=== PATIENT | male | born 1985 | race Caucasian/White ===

== ENCOUNTER 2025-05-19 08:31 | Emergency (ER) | payer BC, SELFPAY ==
--- NOTE | ~2025-05-19 | XR_ITS ---
EXAMINATION: XR foot RT min 3V DATE: 05/19/2025 09:21 INDICATION: Lateral right foot pain TECHNIQUE: Dorsoplantar, two oblique and lateral views of the right foot were obtained. COMPARISON: None. FINDINGS: Alignment is normal. No fracture. Joint spaces are normal. No periosteal reaction or cortical erosions. Soft tissues are unremarkable. IMPRESSION: 1. Negative right foot radiographs. Reviewed, dictated and finalized at location A.
--- OUTSIDE RECORDS SUMMARY | 2025-05-19 08:41 | XMS_ITS | Clinical Summary ---
Author Organization [facility] Address [address] [place] [address] Phone Care Team Providers Care Highway Traffic Control Technician Name Role Phone Unavailable Primary Care Provider Unavailabl e Immunizations Immunization Administration Dates Next Due INFLUENZA VACCINE QUADRIVALENT 6 MOS UP PF IM Social History Tobacco Use Types Packs/Day Years Used Date Smoking Tobacco: Never Assessed Sex and Gender Information Value Date Recorded Sex Assigned at Not on file Legal Sex Male 7:24 PM CDT Gender Identity Not on file Sexual Orientation Not on file Plan of Treatment Health Maintenance Due Date Last Done Comments DTAP/TDAP/TD VACCINES (1 - Tdap) 2005 HEPATITIS B VACCINES (1 of 3 - 19+ 3-dose series) 11/2005 HPV VACCINES (1 - 3-dose SCDM series) 2013 INFLUENZA VACCINE (#1) 2025 06/20/2021 Insurance BLUE ACCESS CHOICE
--- OUTSIDE RECORDS SUMMARY | 2025-05-19 08:41 | XMS_ITS | Encounter Summary ---
Author Organization [facility] Address [address] [place] [address] Care Team Providers Care Cafeteria Operator Name Role Phone Unavailable Primary Care Provider Unavailabl e Encounter Details Date Type Department Care Team (Late st Contact Info) Description 01/31/2020 Lab Requisition [facility] [place] [address] [place] [address] Samir Lee MD [address] [place] [address] Social History Tobacco Use Types Packs/Day Years Used Date Smoking Tobacco: Never Assessed Sex and Gender Information Value Date Recorded Sex Assigned at Not on file Legal Sex Male 7:24 PM CDT Gender Identity Not on file Sexual Orientation Not on file documented as of this encounter Plan of Treatment Not on file documented as of this encounter Visit Diagnoses Not on filedocumented in this encounter
--- OUTSIDE RECORDS SUMMARY | 2025-05-19 08:41 | XMS_ITS | Encounter Summary ---
Author Organization [facility] Address [address] [place] [address] Care Team Providers Care Director Medical Affairs Name Role Phone Unavailable Primary Care Provider Unavailabl e Encounter Details Date Type Department Care Team (Late st Contact Info) Description 01/31/2020 Lab Requisition [facility] [place] [address] [place] [place] [address] Samir Lee MD [address] [place] [address] Social History Tobacco Use Types Packs/Day Years Used Date Smoking Tobacco: Never Assessed Sex and Gender Information Value Date Recorded Sex Assigned at Not on file Legal Sex Male 7:24 PM CDT Gender Identity Not on file Sexual Orientation Not on file documented as of this encounter Plan of Treatment Not on file documented as of this encounter Procedures Procedure Name Priority Date/Time Associated Diagnosis Comments 2019 NOVEL CORONAVIRUS (COVID-19) PCR DETECTION Routine 01/31/2020 9:09 PM CDT documented in this encounter Results * 2019 NOVEL CORONAVIRUS (COVID-19) PCR DETECTION (01/31/2020 9:09 PM CDT) COVID-19 PCR Not Detected Not Detected 02/02/20 20 4:03 AM CDT [facility] Comment:See Scanned Report PERFORMING LAB [facility] 02/02/2020 4:03 AM CDT [facility] Upper Respiratory Collection / Unknown 01/31/2020 9:09 PM CDT 01/31/2020 9:09 PM CDT Samir Lee MD MICROBIOLOGY - GENERAL ORDERABLES Final Result [facility]# [id number] [address] [place] [address] documented in this encounter Visit Diagnoses Not on filedocumented in this encounter
--- OUTSIDE RECORDS SUMMARY | 2025-05-19 08:41 | XMS_ITS | Clinical Summary ---
Author Organization [facility] Address [address] [place] [address] Care Team Providers Care Brass Cleaner Name Role Phone Karolina Miller NP Primary Care Provider Allergies No known active allergies Medications omeprazole (PriLOSEC) 20 mg capsule Take 1 capsule (20 mg total) by mouth daily 4 Active hydroCHLOROthia zide (HYDRODIURIL) 25 mg tablet Take 1 tablet (25 mg total) by mouth daily 4 Active lisinopriL (PRINIVIL,ZESTR IL) 20 mg tablet Take 1 tablet (20 mg total) by mouth daily 4 Active blood-glucose meter,continuou s (Dexcom G7 Chaplaincy) misc Use as directed. 1 each 4 Active glucagon 1 mg kit Inject 1 mg into the muscle once as directed by provider for low blood sugar. 1 kit 4 Active alcohol swabs (Alcohol Wipes) pads, medicated Use as directed. 100 each 4 Active glucose 4 gram chewable tablet Take 4 tablets (16 g total) by mouth as needed for low blood sugar 50 tablet 12 4 08/31/20 25 Active Dexcom G7 Sensor device 1 Device continuously change every 10 days 10 each 3 4 Active insulin lispro (HumaLOG, ADMELOG) 100 unit/mL pen for injection Inject 17 units under the skin 3 times daily with meals 45 mL 3 5 Active insulin glargine (LANTUS) 100 unit/mL (3 mL) pen for injection Inject 27 units under the skin twice daily 60 mL 3 5 Active pen needle, diabetic 32 gauge x needle Use as directed 5 times a day. 100 each 11 5 Active tirzepatide (Mounjaro) 5 mg/0.5 mL pen injector injectionIndica tions:Type 2 diabetes mellitus without complication, with long-term current use of insulin (HCC) Inject 0.5 mL (5 mg total) under the skin once a week 2 mL 6 5 Active Active Problems Problem Noted Date Diagnosed Date Type 2 diabetes mellitus with hyperglycemia 09/16 Severe obesity 08/31/2024 Body mass index 40.0-44.9, adult (CMS/HCC) 08/31 ANISH (acute kidney injury) 08/28/2024 Type 2 diabetes mellitus with other specified co mplication 08/28/2024 Diabetic ketoacidosis withou t coma associated with type 2 diabetes mellitus 08/25/2024 Encounters Date Type Department Care Team Description 04/08/2025 8:30 AM CDT Office Visit [facility] at [address] [address] Nam Sebastian, Type 2 diabetes mellitus without complication, with long-term current use of insulin (HCC) (Primary Dx); Hypertriglyceridemia; Hypertension associated with type 2 diabetes mellitus (HCC) from Last 3 Months Immunizations Immunization Administration Dates Next Due Influenza, Unspecified 06/29/2024 Surgical History Surgery Date Site/Laterality Comments NO PAST SURGERIES Medical History Medical History Date Comments UTI (urinary tract infection) Urinary retention Family History Medical History Relation Name Comments Prostate cancer Father 1 Prostate cancer Father 2 Family histo ry of malignant neoplasm of prostate - (Added by TW Conv) Relation Name Status Comments Father 1 Father 2 Social History Tobacco Use Types Packs/Day Years Used Date Smoking Tobacco: Never Smokeless Tobacco: Never Tobacco Cessation:Counseling Given: Not Answered Alcohol Use Standard Drinks/Week Comments Yes 0 (1 standard drink = 0.6 oz pur e alcohol) [facility] Utilities Answer Date Recorded In the past 12 months has e electric, gas, oil, or water company threatened to shut off services in your home? No 08/26/2024 Social Connection and Isolation Panel Answer Date Recorded In a typical week, how many times do you talk on the phone with family, friends, or neighbors? More than three times a week 08/26/2024 How often do you get togethe r with friends or relatives? Twice a week 08/26/2024 How often do you attend chur ch or adventist services? More than 4 times per year 08/26/2024 Do you belong to any clubs o r organizations such as christian groups, unions, fraternal or athletic groups, or school groups? No 08/26/2024 How often do you attend meet ings of the clubs or organizations you belong to? Never 08/26/2024 Are you , , di vorced, , never , or living with a partner? 08/26/2024 Overall Financial Resource Strain (CARDIA) Answe r Date Recorded How hard is it for you to pa y for the very basics like food, housing, medical care, and heating? Somewhat hard 08/26/2024 Hunger Vital Sign Answer Date Recorded Within the past 12 months, y ou worried that your food would run out before you got the money to buy more. Never true 08/26/20 24 Within the past 12 months, t he food you bought just didn't last and you didn't have money to get more. Never true 08/26/2024 PRAPARE - Transportation Answer Date Re corded In the past 12 months, has l ack of transportation kept you from medical appointments or from getting medications? No 08/15 In the past 12 months, has l ack of transportation kept you from meetings, work, or from getting things needed for daily living? No 08/26/2024 Housing Stability Vital Sign Answer Feng e Recorded In the last 12 months, was t here a time when you were not able to pay the mortgage or rent on time? No 08/26/2024 In the past 12 months, how m any times have you moved where you were living? 0 08/26/2024 At any time in the past 12 m [facility], were you homeless or living in a intermediate (including now)? No 08/26/2024 Personal Safety Answer Date Recorded Have you ever been in or are you currently in a harmful physical or emotional relationship or is someone making you feel afraid or unsafe? Denies 08/25/2024 Sex and Gender Information Value Date Recorded Sex Assigned at Not on file Legal Sex Male 11:50 PM ASSISTANT GOLF COACH Gender Identity Male 10/07/2024 9:19 AM ASSISTANT GOLF COACH Sexual Orientation Straight 10/07/2024 9: 19 AM ASSISTANT GOLF COACH Obstetrics History Last Filed Vital Signs Vital Sign Reading Time Taken Comments Blood Pressure 134/80 04/08/2025 8:34 AM CDT Pulse 92 10/08/2024 10:59 AM ASSISTANT GOLF COACH Temperature 36.2 C (97.2 F) 08/30/2024 7:00 AM ASSISTANT GOLF COACH Respiratory Rate 17 08/30/2024 7:00 AM ASSISTANT GOLF COACH Oxygen Saturation 100% 08/30/2024 7:00 AM ASSISTANT GOLF COACH Inhaled Oxygen Concentration - - Weight 131.9 kg (290 lb 12.8 oz) 04/08/2025 8:34 AM CDT Height 175.3 cm (5' 9) 04/08/2025 8:34 AM CDT Body Mass Index 42.94 04/08/2025 8:34 AM CDT Plan of Treatment Health Maintenance Due Date Last Done Comments Depression Screening 1986 Hepatitis C Screening 1986 DTaP/Tdap/Td Vaccine (1 - Tdap) 1997 Varicella Vaccines (1 of 2 - 13+ 2-dose series) 1999 Regular Well Visit/Exam 18-64 2004 Pneumococcal vaccine <65 (1 of 2 - PCV) 2005 HPV Vaccines (1 - 3-dose SCD M series) 2013 Covid-19 Vaccine ( - 2024-2 6 season) 2025 08/28/2021, 12/15/2020, 11/24/2020 Influenza Vaccine (#1) 2025 06/29/2024, 2020 Hemoglobin A1C 07/09/2025 01/07/2025, 08/28/2024 Foot Exam 08/31/2025 08/31/2024 Albumin Creatinine Ratio, Urine 09/06/2025 Lipid Panel 09/06/2025 09/06/2024 eGFR 09/06/2025 09/06/2024, 08/15, 08/29/2024, Additional history exists Dilated Eye Exam 02/18/2026 02/18/2025 Hepatitis B Screening Completed 01/28/1997 , 10/08/1996, 08/27/1996 Procedures Procedure Name Priority Date/Time Associated Diagnosis Comments DIABETIC EYE EXAM Routine 02/18/2025 POCT HEMOGLOBIN A1C Routine 01/07/2025 8 :44 AM CDT Type 2 diabetes mellitus with hyperglycemia, with long-term current use of insulin (HCC) EGFR Routine 09/06/2024 8:19 AM ASSISTANT GOLF COACH Type 2 diabetes mellitus without complication, without long-term current use of insulin (HCC) LIPID PANEL Routine 09/06/2024 8:19 AM ASSISTANT GOLF COACH Type 2 diabetes mellitus without complication, without long-term current use of insulin (HCC) ALBUMIN CREATININE RATIO, URINE Routine 09/06/2024 8:19 AM ASSISTANT GOLF COACH Type 2 diabetes mellitus without complication, without long-term current use of insulin (HCC) from Last 3 Months or Most Recently Relevant to Health Maintenance Results * Diabetic Eye Exam (02/18/2025) 02/18/2025 Historical Provider HEALTH MAINTENANCE Final Result * POCT hemoglobin A1c (01/07/2025 8:44 AM CDT) Hemoglobin A1C, POC 5.5 4.0 - 5.6 % Blood 01/07/2025 8:44 AM CDT Nam Sebastian DO POINT OF CARE TEST ORDERABL ES Final Result * eGFR (09/06/2024 8:19 AM ASSISTANT GOLF COACH) eGFR 89 >=60 mL/min/1. 73 m2 Comment: Interpretive Data Reference Interval Normal >/= 90 mL/min/1.73m2 Mildly decreased* 60 - 89 mL/min/1.73m2 Mildly to moderately decreased 45 - 59 mL/min/1.73m2 Moderately to severely decreased 30 - 44 mL/min/1.73m2 Severely decreased 15 - 29 mL/min/1.73m2 Kidney Failure < 15 mL/min/1.73m2 *Relative to young adult level Estimated glomerular filtration rate is determined by the 2020 CKD-EPI equation recommended by the National Kidney Foundation (A Unifying Approach to GFR Estimation: Recommendations of the NKF-ASK Task Force on Reassessing the Inclusion of Race in Diagnosing Kidney Disease, JASN 2020). The CKD-EPI equation should not be used for patients with unstable renal function and has not been validated in children and those over 70. Current interpretive data was last reviewed 2021. Testing performed by: [address] [address] Blood 09/06/2024 8:19 AM ASSISTANT GOLF COACH 09/06/2024 1:14 PM ASSISTANT GOLF COACH Nam Sebastian DO LAB BLOOD ORDERABLES Final Result DAVID LOPEZ (EEK) [address] [facility] Department [place] [address] * Albumin Creatinine Ratio, Urine (09/06/2024 8:19 AM ASSISTANT GOLF COACH) Albumin Ur 15.8 mg/L Comment: Interpretive Data No reference range established. Current interpretive data was last revised 2019. Testing performed by: [address] [address] Creatinine Ur 167.4 mg/dL DAVID LOPEZ (ALONSO) Comment: Interpretive Data No reference range established. Current interpretive data was last revised 2019. Testing performed by: [address] [address] Albumin Creatinine Ratio, Ur 9 1 - 29 mg/g DAVID LOPEZ (ALONSO) Comment:Testing performed by : [address] [address] Urine 09/06/2024 8:19 AM ASSISTANT GOLF COACH 09/06/2024 1:03 PM ASSISTANT GOLF COACH Nam Sebastian DO LAB URINE ORDERABLES Final Result DAVID JESSICA ([place]) [facility] Department [place] [address] * (ABNORMAL) Lipid panel (09/06/2024 8:19 AM ASSISTANT GOLF COACH) Cholesterol 194 30 - 199 mg/dL Comment: Interpretive Data Ages < or = 19 years Acceptable: <170 mg/dL Borderline high: 170-199 mg/dL High: >or= 200 mg/dL Ages > or = 20 years Desirable: <200 mg/dL Borderline high: 200-239 mg/dL High: >or= 240 mg/dL Literature References: 1. Expert Panel on Integrated Guidelines for Cardiovascular Health and Risk Reduction in Children and Adolescents. Pediatrics 2011;128:S213 2. NCEP Expert Panel. Circulation 2004;110:227 Current Interpretive Data was last revised on 2018. Testing performed by: [facility], [address] [place] [address]., [id number] Triglycerides 393(H) <=149 mg/dL DAVID LOPEZ (ALONSO) Comment: Interpretive Data Ages < or = 9 years Acceptable: <75 mg/dL Borderline high: 75-99 mg/dL High: >or= 100 mg/dL Ages 10 to 20 years Acceptable: <90 mg/dL Borderline high: 90-129 mg/dL High: >or= 130 mg/dL Ages > or = 20 years Desirable: <150 mg/dL Borderline high: 150-199 mg/dL High: 200-499 mg/dL Very high: >or= 499 mg/dL Literature References: 1. Expert Panel on Integrated Guidelines for Cardiovascular Health and Risk Reduction in Children and Adolescents. Pediatrics 2011;128:S213 2. NCEP Expert Panel. Circulation 2004;110:227 Current Interpretive Data was last revised on 2018. Testing performed by: [facility], [address] [place] [address]., [id number] HDL 25(L) >=40 mg/dL DAVID LOPEZ (ALONSO) Comment: Interpretive Data Ages < or = 19 years Acceptable: >45 mg/dL Borderline low: 40-45 mg/dL Low: <40 mg/dL Ages > or = 20 years Desirable: >or= 60 mg/dL Low: <40 mg/dL Literature References: 1. Expert Panel on Integrated Guidelines for Cardiovascular Health and Risk Reduction in Children and Adolescents. Pediatrics 2011;128:S213 2. NCEP Expert Panel. Circulation 2004;110:227 Current Interpretive Data was last revised on 2018. Testing performed by: [facility], [address] [place] [address]., [id number] LDL, calculated 102 <=129 mg/dL DAVID LOPEZ (ALONSO) Comment: Interpretive Data Ages < or = 19 years Acceptable: <110 mg/dL Borderline high: 110-129 mg/dL High: >or= 130 mg/dL Ages > or = 20 years Optimal: <100 mg/dL Near optimal: 100-129 mg/dL Borderline high: 130-159 mg/dL High: >160 mg/dL Calculated using the Milo LDL-C estimating equation. This equation was implemented on 2024. Prior to this date LDL-C was estimated using the Friedewald equation. Literature References: 1. Expert Panel on Integrated Guidelines for Cardiovascular Health and Risk Reduction in Children and Adolescents. Pediatrics 2011;128:S213 2. NCEP Expert Panel. Circulation 2004;110:227 3. Milo Calvert al. COLT Cardiol. 2019January 13;5(5):540-548. doi: 10.1001/[email or web address] Current Interpretive Data was last revised on 2024. Testing performed by: [facility], [address] [place] [address]., [address] Non-HDL Cholesterol 169 mg/dL DAVID LOPEZ (ALONSO) Comment: Interpretive Data Ages < or = 19 years Acceptable: <120 mg/dL Borderline high: 120-144 mg/dL High: >145 mg/dL Ages > or = 20 years When triglycerides are >200 mg/dL, Non-HDL cholesterol is a secondary target of therapy with treatment goals that are 30 mg/dL greater than the LDL cholesterol target. Literature References: 1. Expert Panel on Integrated Guidelines for Cardiovascular Health and Risk Reduction in Children and Adolescents. Pediatrics 2011;128:S213 2. NCEP Expert Panel. Circulation 2004;110:227 Current Interpretive Data was last revised on 2018. Testing performed by: [facility], [address] [place] [address]., [id number] Chol/HDL ratio 8 ROGERS Shaffer JESSICA (AL[place]SO) Comment:Testing performed by : [facility], [address] [place] [address]., [id number] Blood 09/06/2024 8:19 AM ASSISTANT GOLF COACH 09/06/2024 1:03 PM ASSISTANT GOLF COACH Narrative DAVID JESSICA ([place]) - 09/06/2024 1:36 PM ASSISTANT GOLF COACH These lab test should be done fasting. This means do not eat or drink for at least 12 hours prior to getting your blood drawn. Nam Sebastian DO LAB BLOOD ORDERABLES Final Result DAVID JESSICA ([place]) [address] [facility] Department of Laboratories [place] [phone] from Last 3 Months or Most Recently Relevant to Health Maintenance Insurance [facility] CHOICE PLUS ANTHEM ACCESS CHOICE ANTHEM ACCESS CHOICE Advance Directives For more information, please contact: [phone] * Full Code (Latest Code Status on File) Date Activated Date Inactivated Comments 08/26/2024 6:50 AM 08/30/2024 4:31 PM Care Teams Brass Cleaner Relationship Specialty Start Date End Date Angela, Karolina Romero NP [address] [place] [address] PCP - General Nurse Practitioner 08/25/24
--- OUTSIDE RECORDS SUMMARY | 2025-05-19 08:41 | XMS_ITS | Clinical Summary ---
Author Organization [facility] Address [address] [address] Phone Care Team Providers Care Him Manager Name Role Phone Unavailable Primary Care Provider Unavailabl e Allergies No known active allergies Medications No known medications Active Problems No known active problems Social History Tobacco Use Types Packs/Day Years Used Date Smoking Tobacco: Never Alcohol Use Standard Drinks/Week Comments Yes 0 (1 standard drink = 0.6 oz pur e alcohol) Sex and Gender Information Value Date Recorded Sex Assigned at Not on file Legal Sex Male 12:36 AM CDT Gender Identity Not on file Sexual Orientation Not on file Last Filed Vital Signs Vital Sign Reading Time Taken Comments Blood Pressure 132/90 11/20/2015 3:42 PM BOAT WRAPPER Pulse 105 11/20/2015 3:42 PM BOAT WRAPPER Temperature 36.4 C (97.5 F) 11/20/2015 3:42 PM BOAT WRAPPER Respiratory Rate 20 11/20/2015 3:42 PM BOAT WRAPPER Oxygen Saturation 98% 11/20/2015 3:42 PM BOAT WRAPPER Inhaled Oxygen Concentration - - Weight 134.7 kg (297 lb) 11/20/2015 3:42 PM BOAT WRAPPER Height 177.8 cm (5' 10) 11/20/2015 3:42 PM BOAT WRAPPER Body Mass Index 42.62 11/20/2015 3:42 PM BOAT WRAPPER Plan of Treatment Health Maintenance Due Date Last Done Comments Hepatitis C Virus (HCV) Screening 1986 TdaP Immunization 1986 Hepatitis B Immunization (1 of 3 - 19+ 3-dose series) 2005 Human Papillomavirus (HPV) Immunization (1 - 3-dose SCDM series) 2013 SARS-COV-2 Immunization (2023-25 season) 2024 Influenza Immunization (#1) 2025 Respiratory Syncytial Virus (RSV) Immunization (Adult) (1 - 1-dose 75+ series) 2061 Meningococcal Immunization (ACWY) Aged Out No longer eligible based on patient's age to complete this topic Pneumococcal Immunization Combined Aged Out No longer eligible based on patient's age to complete this topic Rotavirus Immunization Aged Out No lo nger eligible based on patient's age to complete this topic Insurance [facility]
[2025-05-19 08:46] VITALS: BP 141/80; PULSE 96; RESP 16; TEMP 36.8; O2SAT 100
--- NOTE | 2025-05-19 08:50 | ED.GENADULT ---
HPI - General Adult General Chief complaint: Extremity Injury, Lower Stated complaint: Right Foot Pain Time Seen by Provider: 05/19/25 08:53 Source: patient and RN notes reviewed Mode of arrival: ambulatory Limitations: no limitations History of Present Illness HPI narrative: 39-year-old male presents to the [facility] with right lateral foot pain that started on Friday, 2 days ago. Denies any injury. Pain is worse in the morning. Has taken ibuprofen. No bruising or swelling noted. Unable to reproduce pain with palpation but does have pain with walking. History of diabetes, per continuous glucose monitor blood sugar currently 112 Onset (ago): day(s) (2) Treatments prior to arrival: other (Ibuprofen) Related Data Home Medications ?Medication ?Instructions ?Recorded ?Confirmed ?Last Taken ?Type hydrochlorothiazide 25 mg tablet mg 05/19/25 Unknown History insulin glargine 100 unit/mL (3 unit subcut 05/19/25 Unknown History mL) subcutaneous pen (Lantus Solostar U-100 Insulin) insulin lispro 100 unit/mL subcut 05/19/25 Unknown History subcutaneous pen lisinopril 20 mg tablet mg 05/19/25 Unknown History tirzepatide 2.5 mg/0.5 mL mg subcut 05/19/25 Unknown History subcutaneous pen injector (Mounjaro) Allergies Allergy/AdvReac Type Severity Reaction Status Date / Time No Known Allergies Allergy Verified 05/19/25 08:53 Review of Systems Review of Systems: All systems reviewed & are unremarkable except as noted in HPI and below Constitutional: Constitutional: Reports no additional constitutional complaints Musculoskeletal: Musculoskeletal: Reports as per HPI Integumentary/Breasts: Skin/Breast: Reports system reviewed and no additional complaints, except as docu PMFSH Past Medical History Medical History (Updated 05/19/25 @ 11:05 by Rauqel Schroeder APRN) History of primary hypertension Type 2 diabetes mellitus Comments At the time of my signature, I reviewed and agree with the nursing past medical, surgical, social, and family history. There is no relevant family history pertinent to the patient complaint. Exam Const: General: cooperative, healthy appearing, comfortable, no acute distress, well developed, alert and well nourished Nutritional Appearance: well nourished and obese Orientation/consciousness: patient oriented x3 Limitations: no limitations HENMT: Head: normal to inspection Eyes: General: appearance normal, both eyes and all related structures Alignment and Position: alignment normal Neck: Neck: normal visual inspection, full ROM, no lymphadenopathy and no meningeal signs Chest: Chest palpation & inspection: normal inspection of the chest Resp: Effort & Inspection: normal respiratory effort and able to speak in complete sentences Cardio: Rate: regular rate Back/Spine/Pelvis: Back: no CVA tenderness and No back tenderness Skin: General skin exam: normal color and no rashes or lesions noted Neuro: General: patient oriented x3, moves all extremities and no meningeal signs Cognition (Neuro): normal cognition Speech: normal speech Extrem: General: normal to inspection, full ROM, capillary refill normal and abnormal gait (slight limp, ) Right lower extremity: foot Details: normal capillary refill, toes with normal ROM, no edema, vascular exam Details: dorsalis pedis pulse present and normal capillary refill and motor-sensory exam Details: light-touch normal; no tenderness, no abrasion, no ecchymosis, no crepitus, no foreign bodies and no puncture wound Psych: Appearance: grossly normal and well kempt Mental Status: mental status grossly normal Speech and movement: Normal speech and movement present and Clear speech present Affect: normal affect Attitude: cooperative Course Course Level of Care: Express Care Visit Vital Signs Vital signs: Vital Signs Temperature 98.3 F 05/19/25 08:46 Pulse Rate 96 05/19/25 08:46 Respiratory Rate 16 05/19/25 08:46 Blood Pressure 141/80 H 05/19/25 08:46 Pulse Oximetry 100 05/19/25 08:46 Oxygen Delivery Room Air 05/19/25 08:46 Temperature 98.3 F 05/19/25 08:46 Pulse Rate 96 05/19/25 08:46 Respiratory Rate 16 05/19/25 08:46 Blood Pressure 141/80 H 05/19/25 08:46 Pulse Oximetry 100 05/19/25 08:46 Oxygen Delivery Room Air 05/19/25 08:46 Reviewed Medical Decision Making MDM Narrative Medical decision making narrative: Patient sitting comfortably in exam room. Nontoxic, vitals stable. Patient in no acute distress Patient presents with lateral foot pain when walking. First without shoes. Unable to reproduce pain with palpation. X-rays negative. Patient appropriate for outpatient treatment with close follow-up Discharge instructions reviewed with patient, as well as provided in writing per nursing staff. The instructions also include specific and strict return/GO TO THE ER as well as f/u information. All questions have been answered, and the patient deny any further questions with discharge and discharge plan. Some parts of this dictation were generated by voice recognition software and may contain typographical and/or grammatical inaccuracies. Differential Diagnosis Differential Diagnosis: Fractures, arthritis, plantar fasciitis Medical Records Medical records reviewed: Yes I reviewed the external patient's medical records. Vital Signs Vital Signs: Vital Signs Temperature 98.3 F 05/19/25 08:46 Pulse Rate 96 05/19/25 08:46 Respiratory Rate 16 05/19/25 08:46 Blood Pressure 141/80 H 05/19/25 08:46 Pulse Oximetry 100 05/19/25 08:46 Oxygen Delivery Room Air 05/19/25 08:46 Temperature 98.3 F 05/19/25 08:46 Pulse Rate 96 05/19/25 08:46 Respiratory Rate 16 05/19/25 08:46 Blood Pressure 141/80 H 05/19/25 08:46 Pulse Oximetry 100 05/19/25 08:46 Oxygen Delivery Room Air 05/19/25 08:46 Reviewed Lab Data Lab results reviewed: Yes I reviewed the patient's lab results. Labs: Reviewed Imaging Data Radiologist's impression: EXAMINATION: XR foot RT min 3V DATE: 05/19/2025 09:21 INDICATION: Lateral right foot pain TECHNIQUE: Dorsoplantar, two oblique and lateral views of the right foot were obtained. COMPARISON: None. FINDINGS: Alignment is normal. No fracture. Joint spaces are normal. No periosteal reaction or cortical erosions. Soft tissues are unremarkable. IMPRESSION: 1. Negative right foot radiographs. Critical Care Time Critical Care Time Critical Care Time: No Discharge Plan Discharge Clinical Impression: Acute foot pain Qualifiers: Laterality: right Qualified Code(s): M79.671 - Pain in right foot Patient Disposition: Home Condition: Stable Instructions: Plantar Fasciitis (ED), Plantar Fasciitis Exercises (ED) Additional Instructions: Your Xray did not show a fracture. Wear good supportive shoes at all times. You can also look for plantar fasciitis foot shoe inserts Ice should be applied to help reduce swelling. It can be used for 20 to 30 minutes, every 2-3 hours while awake. Do not apply ice directly to your skin. You can alternate ibuprofen 600mg and Tylenol 650mg every 4 hours as needed for pain Please schedule a follow-up visit with your personal physician for further evaluation and treatment within 2 weeks especially if symptoms persist. Today your blood pressure was 141/80. For new or worsening symptoms go directly to the emergency room Patient Language: Icelandic Prescriptions: No Action lisinopril 20 mg tablet hydrochlorothiazide 25 mg tablet insulin lispro 100 unit/mL insulin pen SUBCUT insulin glargine [Lantus Solostar U-100 Insulin] 100 unit/mL (3 mL) insulin pen SUBCUT Mounjaro 2.5 mg/0.5 mL pen injector SUBCUT Follow-up/Referrals: Edwar Galindo Jr., BARBI [Physician, Podiatry] Clinical Impression: Acute foot pain Miller,Karolina Avalos APN [Primary Care Provider, Unknown] - 1 Week Time of Disposition: 10:01
== END 2025-05-19 10:10 | disposition home or self-care (01) ==
PROVIDERS: Emergency Provider Nurse Practitioner; PCP Nurse Practitioner Family
DX: M79.671 Pain in right foot (principal); I10 Essential (primary) hypertension; E11.9 Type 2 diabetes mellitus without complications; Z79.1 Long term (current) use of non-steroidal anti-inflammatories (NSAID); Z79.899 Other long term (current) drug therapy; Z79.4 Long term (current) use of insulin
CPT/HCPCS: 73630; 99203; G0463